=== PATIENT | female | born 1940 | race Caucasian/White ===

== ENCOUNTER 2021-07-12 10:16 | Emergency (ER) | payer MEDICARE, BC ==
[2021-07-12] MEDS ORDERED: Sodium Chloride 0.9% 1,000 ML IV SCH (10:30)
[2021-07-12 11:15] VITALS: PULSE 59
[2021-07-12 11:54] VITALS: BP 160/90
== END 2021-07-12 12:45 | disposition home or self-care (01) ==
LOC: LB.ED 10:16
DX: R55 Syncope and collapse (principal); R53.1 Weakness; E11.9 Type 2 diabetes mellitus without complications; Z79.899 Other long term (current) drug therapy
CPT/HCPCS: 36415; 80053; 81003; 82947; 84484; 85025; 96360; 96361; 99285; J7030

== ENCOUNTER 2023-10-29 07:55 | Emergency (ER) | payer MEDICARE, BC ==
[2023-10-29 09:13] VITALS: BP 193/78; PULSE 62
== END 2023-10-29 09:40 | disposition home or self-care (01) ==
LOC: LB.ED 07:55
DX: B02.22 Postherpetic trigeminal neuralgia (principal); B02.9 Zoster without complications; I10 Essential (primary) hypertension; E78.00 Pure hypercholesterolemia, unspecified; E11.9 Type 2 diabetes mellitus without complications; Z87.891 Personal history of nicotine dependence; Z79.899 Other long term (current) drug therapy; Z79.84 Long term (current) use of oral hypoglycemic drugs
CPT/HCPCS: 99283; 99284

== ENCOUNTER 2023-11-10 15:57 | Emergency (ER) | payer MEDICARE, BC ==
[2023-11-10 17:00] LABS: BASOPHILS ABSOLUTE AUTO 0.04 K/uL (0.02-0.10); BASOPHILS PERCENT AUTO 0.7 % (0.0-0.5); EOSINOPHILS ABSOLUTE AUTO 0.12 K/uL (0.04-0.40); HEMATOCRIT 33.4 % (37.0-47.0); HEMOGLOBIN 10.9 g/dL (11.5-16.5); LYMPHOCYTES ABSOLUTE AUTO 1.79 K/uL (1.50-4.00); LYMPHOCYTES PERCENT AUTO 29.6 % (20.0-40.0); MEAN CORPUSCULAR HGB CONC 32.6 g/dL (31.0-35.0); MEAN CORPUSCULAR VOLUME 92 fL (76-96); MEAN PLATELET VOLUME 10.4 fL (6.0-10.0); MONOCYTES ABSOLUTE AUTO 0.41 K/uL (0.20-0.80); MONOCYTES PERCENT AUTO 6.8 % (3.0-10.0); NEUTROPHILS ABSOLUTE AUTO 3.68 K/uL (2.00-7.50); NEUTROPHILS PERCENT AUTO 60.9 % (45.0-70.0); PLATELET COUNT,PLT 107 K/uL (150-500); RED BLOOD CELL COUNT 3.63 M/uL (3.80-5.80); RED CELL DISTRIBUTION WIDTH 15.4 % (11.0-16.0)
[2023-11-10 17:26] LABS: ALBUMIN 3.3 g/dL (3.4-5.0); ANION GAP 12.3 mmol/L (5.0-15.0); BILIRUBIN TOTAL 0.3 mg/dL (0.0-1.0); BUN/CREATININE RATIO 20.5 (6-25); CALCIUM 8.6 mg/dL (8.5-10.1); CARBON DIOXIDE,CO2 24.5 mmol/L (21.0-32.0); CREATININE 1.22 mg/dL (0.55-1.02); EST CRCL DRUG DOSING (CG) 34.57 mL/min; POTASSIUM,K 3.8 mmol/L (3.5-5.1); PROTEIN TOTAL,TP 6.6 g/dL (6.4-8.2)
[2023-11-10] MEDS ORDERED: Clopidogrel 75 MG Tab ONE (18:00)
[2023-11-10] MEDS: Clopidogrel 75 MG Tab PO ONE (18:04)
[2023-11-10] MEDS: Aspirin 81 MG Tab.Chew PO ONE (18:04)
[2023-11-10 18:31] VITALS: BP 144/61; PULSE 65
[2023-11-13] MEDS: Clopidogrel 75 MG Tab ONE (08:32)
== END 2023-11-10 18:21 | disposition home or self-care (01) ==
LOC: LB.ED 15:57
DX: R47.01 Aphasia (principal); I10 Essential (primary) hypertension; E11.9 Type 2 diabetes mellitus without complications; E78.00 Pure hypercholesterolemia, unspecified; Z79.84 Long term (current) use of oral hypoglycemic drugs; Z79.899 Other long term (current) drug therapy
CPT/HCPCS: 36415; 70450; 80053; 82947; 85025; 99284; 99285; A9270-GY

== ENCOUNTER 2024-12-20 06:57 | Emergency (ER) | payer MEDICARE, BC ==
[2024-12-20] MEDS: Sodium Chloride 0.9% 10 ML Syringe FLUSH PRN (07:20)
[2024-12-20 07:58] LABS: MEAN PLATELET VOLUME 10.3 fL (6.0-10.0); PLATELET COUNT,PLT 273.0 K/uL (150-500); RED BLOOD CELL COUNT 3.17 M/uL (3.80-5.80); RED CELL DISTRIBUTION WIDTH 17.0 % (11.0-16.0); WHITE BLOOD CELL COUNT,WBC 6.2 K/uL (4.0-11.0)
[2024-12-20 08:00] LABS: APPEARANCE,URINE TURBID (CLEAR); GLUCOSE,URINE NEGATIVE (NEGATIVE); OCCULT BLOOD,URINE SMALL (NEGATIVE)
[2024-12-20 08:12] LABS: SQUAMOUS EPITHELIAL CELLS,UR FEW /HPF; WBC CLUMPS,URINE FEW /HPF
[2024-12-20 08:14] LABS: BLOOD UREA NITROGEN,BUN 38.0 mg/dL (8-26); CARBON DIOXIDE,CO2 24.2 mmol/L (21.0-32.0); CHLORIDE,CL 105.0 mmol/L (98-107); CREATININE 1.23 mg/dL (0.55-1.02); EST CRCL DRUG DOSING (CG) 32.44 mL/min; ESTIMATED GFR 44.0 mL/min (>60); GLUCOSE RANDOM 131.0 mg/dL (74-100); PHOSPHORUS 3.3 mg/dL (2.5-4.9); POTASSIUM,K 4.4 mmol/L (3.5-5.1); SODIUM,NA 138.0 mmol/L (136-145); TROPONIN I HIGH SENSITIVITY 12.9 pg/ml (<=60.4)
[2024-12-20 10:56] LABS: BLOOD UREA NITROGEN,BUN 35.0 mg/dL (8-26); CARBON DIOXIDE,CO2 24.4 mmol/L (21.0-32.0); CHLORIDE,CL 107.0 mmol/L (98-107); CREATININE 1.12 mg/dL (0.55-1.02); EST CRCL DRUG DOSING (CG) 35.63 mL/min; ESTIMATED GFR 49.0 mL/min (>60); GLUCOSE RANDOM 117.0 mg/dL (74-100); POTASSIUM,K 4.4 mmol/L (3.5-5.1); SODIUM,NA 134.0 mmol/L (136-145)
[2024-12-20] MEDS: Sodium Chloride 0.9% 50 ML SDV FLUSH ONE (12:10)
[2024-12-20] MEDS: Iodixanol 652 MG/ML 100 ML Bottle IV SCH (12:10)
[2024-12-20] MEDS: Iodixanol 550 MG/ML 100 ML Bottle IV ONE (12:25)
[2024-12-20 13:38] VITALS: BP 149/62; PULSE 62
== END 2024-12-20 13:30 ==
LOC: LB.ED 06:57
DX: K92.2 Gastrointestinal hemorrhage, unspecified (principal); I48.91 Unspecified atrial fibrillation; D50.0 Iron deficiency anemia secondary to blood loss (chronic); Z79.84 Long term (current) use of oral hypoglycemic drugs; Z79.899 Other long term (current) drug therapy; Z79.82 Long term (current) use of aspirin
CPT/HCPCS: 36415; 71260; 74177; 80048; 81001; 83735; 84100; 84484; 85018; 85027; 85379; 86850; 86900; 86901; 87086; 93005; 96361; 96374; 99285-25; A0425; A0428; A9270-GY; J2470; J7030

== ENCOUNTER 2025-01-02 18:15 | Emergency (ER) | payer MEDICARE, BC ==
[2025-01-02] MEDS ORDERED: Sodium Chloride 0.9% 10 ML Syringe FLUSH PRN (18:50)
[2025-01-02 19:02] LABS: BASOPHILS ABSOLUTE AUTO 0.03 K/uL (0.02-0.10); BASOPHILS PERCENT AUTO 0.5 % (0.0-0.5); EOSINOPHILS ABSOLUTE AUTO 0.22 K/uL (0.04-0.40); EOSINOPHILS PERCENT AUTO 3.8 % (1.0-5.0); LYMPHOCYTES ABSOLUTE AUTO 2.22 K/uL (1.50-4.00); LYMPHOCYTES PERCENT AUTO 37.9 % (20.0-40.0); MEAN PLATELET VOLUME 9.9 fL (6.0-10.0); MONOCYTES ABSOLUTE AUTO 0.52 K/uL (0.20-0.80); MONOCYTES PERCENT AUTO 8.9 % (3.0-10.0); NEUTROPHILS ABSOLUTE AUTO 2.87 K/uL (2.00-7.50); NEUTROPHILS PERCENT AUTO 48.9 % (45.0-70.0); PLATELET COUNT,PLT 310 K/uL (150-500); RED BLOOD CELL COUNT 3.79 M/uL (3.80-5.80); RED CELL DISTRIBUTION WIDTH 15.7 % (11.0-16.0); WHITE BLOOD CELL COUNT,WBC 5.9 K/uL (4.0-11.0)
[2025-01-02 19:20] LABS: A/G RATIO 0.9 (0.8-2.0); ALANINE AMINOTRANSFERASE,ALT 15.0 U/L (12-78); ASPARTATE AMNIOTRANSFERASE,AST 15.0 U/L (15-37); BILIRUBIN TOTAL 0.3 mg/dL (0.0-1.0); BLOOD UREA NITROGEN,BUN 23.0 mg/dL (8-26); CARBON DIOXIDE,CO2 24.2 mmol/L (21.0-32.0); CHLORIDE,CL 108.0 mmol/L (98-107); CREATININE 1.1 mg/dL (0.55-1.02); EST CRCL DRUG DOSING (CG) 37.68 mL/min; ESTIMATED GFR 50.0 mL/min (>60); GLUCOSE RANDOM 145.0 mg/dL (74-100); POTASSIUM,K 4.3 mmol/L (3.5-5.1); PROTEIN TOTAL,TP 6.8 g/dL (6.4-8.2); SODIUM,NA 143.0 mmol/L (136-145)
[2025-01-02 19:51] VITALS: BP 181/80; PULSE 68
== END 2025-01-02 19:35 | disposition home or self-care (01) ==
LOC: LB.ED 18:15
DX: R19.5 Other fecal abnormalities (principal); E83.42 Hypomagnesemia; Z87.19 Personal history of other diseases of the digestive system; I48.91 Unspecified atrial fibrillation; E78.00 Pure hypercholesterolemia, unspecified; I10 Essential (primary) hypertension; E11.9 Type 2 diabetes mellitus without complications; Z79.84 Long term (current) use of oral hypoglycemic drugs; Z79.899 Other long term (current) drug therapy
CPT/HCPCS: 36415; 80053; 83735; 85025; 99284; A9270